=== PATIENT | male | born 2000 | race Caucasian/White ===

== ENCOUNTER 2024-07-25 06:14 | Emergency (ER) | payer OTHER ==
[2024-07-25 06:53] VITALS: BP 125/68; PULSE 72
[2024-07-25] MEDS: Bacitracin Oint 1 GM U/D Packet TOP ONE (07:01)
[2024-07-25] MEDS: Diphtheria,Pertussis(Acell),Tetanus Vaccine 0.5 ML Syringe IM ONE (07:01)
== END 2024-07-25 07:13 | disposition home or self-care (01) ==
LOC: FB.ED 06:14
DX: S60.511A Abrasion of right hand, initial encounter (principal); S00.81XA Abrasion of other part of head, initial encounter; S50.812A Abrasion of left forearm, initial encounter; X58.XXXA Exposure to other specified factors, initial encounter; Z88.8 Allergy status to other drugs, medicaments and biological substances; Y93.72 Activity, wrestling
CPT/HCPCS: 90471; 90715; 99282-25